=== PATIENT | female | born 1995 | race Caucasian/White ===

== ENCOUNTER 2020-05-21 18:06 | Emergency (ER) | payer OTHER ==
[~2020-05-21 18:06] MED LIST: AMOXICILLIN500 MG PO; NORCO 5-325 TA1 EACH PO; PEPCID AC20 MG PO; PREDNISONE 20MG20 MG PO; PROZAC20 MG PO; ZYRTEC10 MG PO
== END 2020-05-21 19:26 | disposition home or self-care (01) ==
LOC: FER 18:06
DX: S93.402A Sprain of unspecified ligament of left ankle, initial encounter (principal); W19.XXXA Unspecified fall, initial encounter; Y92.009 Unspecified place in unspecified non-institutional (private) residence as the place of occurrence of the external cause
CPT/HCPCS: 73610